=== PATIENT | male | born 1970 | race African-American/Black ===

== ENCOUNTER 2018-06-05 11:54 | Observation (INO) ==
[2018-06-05 13:32] LABS: Albumin 1.4 G/DL (3.4-5.0); Bilirubin,Total 1.4 MG/DL (0.2-1.0); Calcium 7.8 MG/DL (8.5-10.1); Potassium 2.8 MMOL/L (3.5-5.1); Total Protein 4.4 G/DL (6.4-8.3)
[2018-06-05] MEDS ORDERED: ONDANSETRON 4 MG/2 ML VIAL IV STA (13:41)
[2018-06-05] MEDS ORDERED: LACTATED RINGERS 1,000 ML IV ONE (13:42)
[2018-06-05] MEDS ORDERED: POTASSIUM CHLORIDE RIDER 20 MEQ in PREMIX 1 EACH IV STA (13:42)
[2018-06-05 14:58] LABS: Basophils % 0.4 % (0.0-0.8); Eosinophils # 0.2 10*3/uL (0.0-0.87); Hematocrit 27.1 VOL% (42.0-52.0); Hemoglobin 8.8 GM/DL (14.0-18.0); Immature Granulocytes % 0.7 %; Immature Granulocytes Absolute 0.07 #; Lymphocytes # 1.2 10*3/uL (1.4-4.0); Mean Corpuscular HGB Conc 32.5 GM/DL (32-36); Mean Corpuscular Hemoglobin 27 PG (27-34); Mean Corpuscular Volume 82.9 FL (87-102); Monocytes % 8.9 % (1.7-12.7); Neutrophils # 8.2 10*3/uL (1.4-7.4); Platelet Count 62 T/CUMM (130-400); Red Blood Count 3.27 MC/CUMM (3.8-5.5); Red Cell Distribution Width 19.9 % (9.3-17.3); White Blood Count 10.7 T/CUMM (4-12)
[2018-06-05] MEDS ORDERED: CEFTAROLINE 600 MG in SODIUM CHLORIDE 0.9% 100 ML IV STA (15:18)
[2018-06-05] MEDS ORDERED: PANTOPRAZOLE 40 MG VIAL IV STA (15:26)
[2018-06-05] MEDS ORDERED: MORPHINE 4 MG/1 ML VIAL IV STA (15:26)
[2018-06-05] MEDS ORDERED: ONDANSETRON 4 MG/2 ML VIAL IV PRN (15:39)
[2018-06-05] MEDS ORDERED: FUROSEMIDE 40 MG/4 ML VIAL IV ONE ×2 (15:45→22:30)
[2018-06-05] MEDS ORDERED: MAGNESIUM SULF RIDER 2 GM in PREMIX 1 EACH IV ONE (15:45)
[2018-06-05 16:08] LABS: Risk Ratio 8.64; VLDL CHOLESTEROL 31.4 MG/DL
[2018-06-05 16:26] LABS: PT Patient Result 10.8 SECS
[2018-06-05 17:04] LABS: Band Neutrophils 10 % (0-10); Eosinophils 2 % (0-10); Lymphocytes 9 % (20-55); Segmented Neutrophils 76 % (50-85)
[2018-06-05 17:05] LABS: Platelet Estimate Decreased
[2018-06-05 17:06] LABS: Anisocytosis 2+; Hypochromasia 1+; Poikilocytosis 1+; Target Cells 2+
[2018-06-05 17:07] LABS: Elliptocytes Few; Polychromasia Slight
[2018-06-05 17:08] LABS: Total Cells Counted 100
[2018-06-05] MEDS: POTASSIUM CHLORIDE RIDER 10 MEQ in PREMIX 1 EACH IV SCH (17:37)
[2018-06-05] MEDS ORDERED: ALBUMIN 25% 25 GM in PREMIX 1 EACH IV ONE (18:00)
[2018-06-05] MEDS: POTASSIUM CHLORIDE 20 MEQ TABLET PO SCH ×2 (19:26→21:26)
[2018-06-06 06:00] LABS: PT Patient Result 10.7 SECS
[2018-06-06 06:08] LABS: Basophils % 0.3 % (0.0-0.8); Eosinophils # 0.2 10*3/uL (0.0-0.87); Eosinophils % 2.4 % (0.00-10.9); Hematocrit 23.4 VOL% (42.0-52.0); Hemoglobin 7.9 GM/DL (14.0-18.0); Immature Granulocytes % 0.4 %; Immature Granulocytes Absolute 0.04 #; Lymphocytes # 1.6 10*3/uL (1.4-4.0); Lymphocytes % 15.9 % (21.2-54.2); Mean Corpuscular HGB Conc 33.8 GM/DL (32-36); Mean Corpuscular Hemoglobin 28 PG (27-34); Mean Corpuscular Volume 82.4 FL (87-102); Monocytes # 0.9 10*3/uL (0.11-0.8); Monocytes % 9.1 % (1.7-12.7); Neutrophils # 7.2 10*3/uL (1.4-7.4); Neutrophils % 71.9 % (38.7-73.9); Platelet Count 65 T/CUMM (130-400); Red Blood Count 2.84 MC/CUMM (3.8-5.5); Red Cell Distribution Width 19.7 % (9.3-17.3)
[2018-06-06 07:07] LABS: Albumin 1.5 G/DL (3.4-5.0); Bilirubin,Total 0.9 MG/DL (0.2-1.0); Calcium 7.6 MG/DL (8.5-10.1); Osmolality,Calculated 274.5 MOS/KG (273-304); Potassium 3.7 MMOL/L (3.5-5.1); Total Protein 4.5 G/DL (6.4-8.3)
[2018-06-06 07:37] LABS: Eosinophils 2 % (0-10); Hypochromasia 1+; Lymphocytes 17 % (20-55); Ovalocytes Slight; Platelet Estimate Decreased; Segmented Neutrophils 73 % (50-85); Target Cells 1+; Total Cells Counted 100
[2018-06-06] MEDS ORDERED: LORazepam 2 MG/1 ML VIAL IV PRN (08:47)
[2018-06-06] MEDS: cefTRIAXone 1,000 MG in SYRINGE 1 EACH IV SCH (10:04)
[2018-06-06] MEDS: FOLIC ACID 1 MG TABLET PO SCH (10:05)
[2018-06-06] MEDS: THIAMINE 100 MG TABLET PO SCH (10:05)
[2018-06-06 10:48] LABS: % Iron Saturation 86.7 % (18-50); Ferritin 869.5 ng/ml (26-388)
[2018-06-06] MEDS: PANTOPRAZOLE 40 MG VIAL IV SCH (12:00)
[2018-06-06] MEDS: POTASSIUM CHLORIDE RIDER 10 MEQ in PREMIX 1 EACH IV SCH (14:55)
[2018-06-06 17:28] LABS: Hepatitis A Ab IgM Quant 0.17 Index; Hepatitis A Ab IgM Result Negative (Negative); Hepatitis B Core IgM Quant 0.32 Index; Hepatitis B Core IgM Result Negative (Negative); Hepatitis B Surface Ag Quant < 0.10 Index; Hepatitis B Surface Ag Result Negative (Negative); Hepatitis C Virus Ab Quant < 0.02 Index; Hepatitis C Virus Ab Result Negative (Negative)
[2018-06-07] MEDS ORDERED: LACTATED RINGERS 1,000 ML IV SCH (08:00)
[2018-06-07 08:02] LABS: Basophils % 0.6 % (0.0-0.8); Eosinophils # 0.4 10*3/uL (0.0-0.87); Eosinophils % 6.1 % (0.00-10.9); Hematocrit 24.5 VOL% (42.0-52.0); Hemoglobin 7.8 GM/DL (14.0-18.0); Immature Granulocytes % 3.6 %; Immature Granulocytes Absolute 0.26 #; Lymphocytes # 1.7 10*3/uL (1.4-4.0); Lymphocytes % 23.4 % (21.2-54.2); Mean Corpuscular HGB Conc 31.8 GM/DL (32-36); Mean Corpuscular Hemoglobin 28 PG (27-34); Mean Corpuscular Volume 86.6 FL (87-102); Monocytes % 13.1 % (1.7-12.7); Neutrophils # 3.9 10*3/uL (1.4-7.4); Neutrophils % 53.2 % (38.7-73.9); Red Blood Count 2.83 MC/CUMM (3.8-5.5); Red Cell Distribution Width 18.8 % (9.3-17.3); White Blood Count 7.3 T/CUMM (4-12)
[2018-06-07 08:04] LABS: Platelet Count 92 T/CUMM (130-400)
[2018-06-07] MEDS: THIAMINE 100 MG TABLET PO SCH (09:07)
[2018-06-07] MEDS: FOLIC ACID 1 MG TABLET PO SCH (09:07)
[2018-06-07] MEDS ORDERED: PROPOFOL 200 MG/20 ML VIAL IV ONE (10:00)
[2018-06-07] MEDS ORDERED: LIDOCAINE 2% 5 ML VIAL ONE (10:00)
[2018-06-07 11:15] VITALS: BP 119/84
[2018-06-07] MEDS: PANTOPRAZOLE 40 MG VIAL IV SCH (11:26)
[2018-06-07] MEDS: cefTRIAXone 1,000 MG in SYRINGE 1 EACH IV SCH (11:26)
[2018-07-04] MEDS ORDERED: BISACODYL 5 MG TABLET PO ONE (12:00)
[2018-07-04] MEDS ORDERED: POLYETHYLENE GLYCOL POWDER 255 GM BOTTLE PO ONE (18:00)
== END 2018-06-07 12:08 | disposition home or self-care (01) ==
LOC: N.ED 11:54 → N.EDINP 11:54 → N.5E 18:41
PROVIDERS: ADMIT Internal Medicine; ATTEND Internal Medicine

== ENCOUNTER 2019-12-21 06:54 | Inpatient (IN) ==
[2019-12-21] MEDS ORDERED: SODIUM CHLORIDE 0.9% 2,000 ML IV STA (07:49)
[2019-12-21] MEDS ORDERED: ONDANSETRON 4 MG/2 ML VIAL IV STA ×2 (07:49→09:24)
[2019-12-21 07:58] LABS: Hematocrit 31.9 VOL% (42.0-52.0); Hemoglobin 11.2 GM/DL (14.0-18.0); Lymphocytes # 0.2 10*3/uL (1.4-4.0); Lymphocytes % 37.8 % (21.2-54.2); Mean Corpuscular HGB Conc 35.1 GM/DL (32-36); Mean Corpuscular Volume 76.1 FL (87-102); Monocytes % 6.7 % (1.7-12.7); NRBC # 0.02 10*3/uL; Neutrophils % 55.5 % (38.7-73.9); Red Blood Count 4.19 MC/CUMM (3.8-5.5); Red Cell Distribution Width 27.5 % (9.3-17.3)
[2019-12-21 08:05] LABS: Platelet Count 25 T/CUMM (130-400); White Blood Count 0.5 T/CUMM (4-12)
[2019-12-21 08:28] LABS: Atypical Lymphocytes Few; Band Neutrophils 7 % (0-10); Eosinophils 2 % (0-10); Lymphocytes 50 % (20-55); Nucleated Red Blood Cells 2 (0-5); Platelet Estimate Decreased; Segmented Neutrophils 31 % (50-85); Total Cells Counted 100
[2019-12-21 08:29] LABS: Howell-Jolly Bodies Slight; Hypochromasia 1+; Pappenheimer Bodies Slight; Target Cells Few
[2019-12-21 08:48] LABS: INR 1.9; PT Patient Result 19.9 SECS (9.8-11.9)
[2019-12-21] MEDS ORDERED: cefTRIAXone 1,000 MG in SODIUM CHLORIDE 0.9% 100 ML IV STA (09:12)
[2019-12-21] MEDS ORDERED: cefTRIAXone 1,000 MG VIAL ONE (09:16)
[2019-12-21 09:47] LABS: Albumin 1.5 G/DL (3.4-5.0); Calcium 8.5 MG/DL (8.5-10.1); Total Protein 5.3 G/DL (6.4-8.3)
[2019-12-21 09:48] LABS: Osmolality,Calculated 255.8 MOS/KG (273-304)
[2019-12-21 09:54] LABS: Bacteria,Urine Occasional /HPF (Few); Blood, Urine Moderate mg/dL (Negative); Glucose,Urine (UA) Negative (Negative); Ketones,Urine Negative (Negative); Mucus,Urine Occasional /LPF (Occasional); Nitrite,Urine Negative (Negative); Protein,Urine 30 MG/DL; RBC,Urine <1 /HPF (0-4); Squamous Epithelial Cell,Urine Occasional /HPF (0-10); Urine Appearance Slightly Hazy (Clear); Urine Color Amber (Yellow); Urine Specific Gravity 1.015 (1.001-1.035); WBC,Urine <1 /HPF (0-6)
[2019-12-21 09:55] LABS: Bilirubin,Urine Moderate mg/dL (Negative)
[2019-12-21 09:56] LABS: Bilirubin,Total 12.6 MG/DL (0.2-1.0)
[2019-12-21] MEDS ORDERED: DEXTROSE 50% 25 GM/50 ML SYRINGE IV ONE (09:56)
[2019-12-21] MEDS ORDERED: HYDROCORTISONE 100 MG VIAL IV STA (09:57)
[2019-12-21] MEDS ORDERED: LORazepam 2 MG/1 ML VIAL ONE (09:59)
[2019-12-21 10:11] LABS: Barbiturates Screen,Urine Negative (Negative); Benzodiazepines Screen,Urine Negative (Negative); Cannabinoid Screen,Urine Negative (Negative); Opiate Screen,Urine Negative (Negative); Phencyclidine Screen,Urine Negative (Negative)
[2019-12-21] MEDS ORDERED: VANCOMYCIN INJ 1,250 MG in SODIUM CHLORIDE 0.9% 250 ML IV STA (10:20)
[2019-12-21] MEDS ORDERED: MIDAZOLAM 100 MG in SODIUM CHLORIDE 0.9% 80 ML IV PRN (10:57)
[2019-12-21] MEDS ORDERED: ONDANSETRON 4 MG/2 ML VIAL IV PRN (10:57)
[2019-12-21] MEDS ORDERED: ALBUTEROL 2.5 MG/3 ML NEB RESP TX PRN (10:57)
[2019-12-21] MEDS ORDERED: LACTATED RINGERS 1,000 ML IV SCH (11:00)
[2019-12-21] MEDS ORDERED: PANTOPRAZOLE 40 MG VIAL IV SCH ×2 (11:00→21:00)
[2019-12-21] MEDS ORDERED: NOREPINEPHRINE 4 MG/4 ML VIAL IV ONE ×2 (11:33→20:27)
[2019-12-21 11:38] LABS: ABG HCO3 11.2 MMOL/L (20-26); ABG PCO2 40.1 MM HG (35-48); ABG PO2 72.9 MM HG (80-95); ABG TCO2 12.5 MMOL/L (23-27); Allen Test Positive; Pt O2 Delivery Device Ventilator
[2019-12-21 11:40] LABS: ABG PH 7.065 (7.35-7.45)
[2019-12-21] MEDS: NOREPINEPHRINE 8 MG in SODIUM CHLORIDE 0.9% 242 ML IV SCH ×3 (11:43→20:30)
[2019-12-21] MEDS ORDERED: DEXTROSE 50% 25 GM/50 ML VIAL IV ONE (11:50)
[2019-12-21] MEDS: DEXTROSE 50% 25 GM/50 ML VIAL IV PRN ×3 (11:55→19:59)
[2019-12-21] MEDS ORDERED: DEXTROSE 10% 500 ML IV SCH (12:00)
[2019-12-21] MEDS: DEXTROSE 10% 1,000 ML IV SCH ×2 (12:27→18:54)
[2019-12-21] MEDS ORDERED: SODIUM BICARBONATE 50 MEQ/50 ML VIAL IV ONE ×5 (12:39→23:22)
[2019-12-21 12:44] LABS: HIV Antigen/Antibody Result Nonreactive (Nonreactive)
[2019-12-21] MEDS ORDERED: PHENYLEPHRINE DRIP 40 MG/250 ML PREMIX IV ONE (13:21)
[2019-12-21 13:55] VITALS: BP 183/111
[2019-12-21] MEDS ORDERED: VANCOMYCIN INJ 1,000 MG in SODIUM CHLORIDE 0.9% 250 ML IV SCH (14:00)
[2019-12-21] MEDS: HYDROCORTISONE 100 MG VIAL IV SCH ×2 (15:39→19:58)
[2019-12-21] MEDS: SULFAMETHOX/TRIMETHOPRIM 800-160 MG TABLET PER TUBE SCH ×2 (15:39→20:04)
[2019-12-21] MEDS ORDERED: prednisoLONE 15 MG/5 ML ORAL.SYR NG SCH (16:30)
[2019-12-21] MEDS: PHENYLEPHRINE DRIP 40 MG/250 ML PREMIX IV PRN ×3 (18:14→22:26)
[2019-12-21 19:28] LABS: ABG Base Excess -21.6 MMOL/L (-2.5-2.5); ABG HCO3 8.6 MMOL/L (20-26); ABG Oxygen Saturation 93.2 % (95-100); ABG PCO2 49.5 MM HG (35-48); ABG TCO2 10.4 MMOL/L (23-27)
[2019-12-21 19:32] LABS: ABG PH 6.921 (7.35-7.45)
[2019-12-21] MEDS ORDERED: SODIUM BICARBONATE 50 MEQ/50 ML VIAL IV STA (19:37)
[2019-12-22] MEDS ORDERED: cefTRIAXone 1,000 MG in SYRINGE 1 EACH IV SCH (09:00)
== END 2019-12-22 01:46 | disposition expired | DRG 208 ==
LOC: EDBD → EDUNIT# → N.ED 06:54 → N.EDINP 09:58 → N.ICU 10:40
PROVIDERS: ADMIT Internal Medicine; ATTEND Internal Medicine